=== PATIENT | female | born 2000 | race Caucasian/White ===

== ENCOUNTER 2023-08-06 05:06 | Emergency (ER) | payer OTHER ==
[2023-08-06 05:28] VITALS: TEMP 97.8
[2023-08-06 05:39] LABS: Appearance Clear (Clear); Bacteria None Seen /HPF (None Seen); Bilirubin Negative (Negative); Blood Negative (Negative); Epithelial Cells Rare /HPF (None Seen); Glucose, Urine Negative (Negative); Hyaline Casts NONE SEEN /LPF (0-2); Ketones Negative (Negative); Leukocyte Esterase Negative (Negative); Nitrite Negative (Negative); Protein,Urine Dip Negative (Negative); WBC 0-2 /HPF (0-5)
[2023-08-06 05:41] LABS: ADD URINE CULTURE? NO (NO)
--- NOTE | 2023-08-06 05:49 | ERPHSYRPT ---
- History of Present Illness Historian: patient Exam Limitations: no limitations Patient Subjective Stated Complaint: pt states that on Friday she had mid back pain then Friday night her lower back also started hurting and she isn't able to get comfortable. Triage Nursing Assessment: pt ambulated to room 8 independently with slow steady gait after standing on scale for weight acquisition and to BR to obtain urine specimen. pt is alert and oriented times three, able to move all extremities, able to speak in complete sentences, and with resp even and unlabored. bilat pedal and radial pulses palpable. denies numbness or tingling, loss of bowel or bladder. color and cap refill within normal limits to all extremities. denies injury or accident that might be causing pain. denies n/v, cp, sob, difficulty breathing, difficulty with urination or bowel elimination, change in appetite, fever, cough, chills. Timing/Duration: day(s) (2 days ago) Activities at Onset: none Quality: aching Abdominal Pain Onset Location: flank (Pain is at the right flank right lower back and right mid back) Pain Radiation: no radiation Severity of Pain-Max: moderate Severity of Pain-Current: mild Modifying Factors: Improves With: nothing Associated Symptoms: denies symptoms Previous symptoms: no prior history Hx Tetanus, Diphtheria Vaccination/Date Given: No Hx Influenza Vaccination/Date Given: No Hx Pneumococcal Vaccination/Date Given: No Immunizations Up to Date: No <MIRZA BREWER - Last Filed: 08/06/23 06:52> <ONIEL SOARES - Last Filed: 08/06/23 09:01> - History of Present Illness Time Seen by Provider: 08/06/23 05:30 Physician History: Patient a 23-year-old female presents to emergency department for evaluation of low back pain. Patient states her low back pain started on Friday. Pain was at the midline at that time. On Friday the pain shifted towards her right lower back. No trauma no fever. Patient concerned with her kidneys. Patient denies urinary symptomology. No trauma. Pain is localized. No radiation. Patient states pain is worse if she lays on her back for prolonged period of time. No hematuria no dysuria. No suprapubic pain or tenderness. Patient denies history of the same. Patient states she is otherwise healthy. She voices no other complaints or concerns at this time. Patient declined pain medication Portions of this note were created with voice recognition technology. There may be grammatical, spelling, punctuation or sound alike errors (MIRZA BREWER) Allergies/Adverse Reactions: No Known Drug Allergies Allergy (Verified 08/06/23 05:16) Travel Risk - International Travel Have you traveled outside of the country in past 3 weeks: No - Coronavirus Screening Are you exhibiting any of the following symptoms?: No Close contact with a COVID-19 positive Pt in past 14-21 Days: No - Vaccine Status Have you recieved a Covid-19 vaccination: No <MIRZA BREWER - Last Filed: 08/06/23 06:52> - Review of Systems Constitutional: No Symptoms, No Fever, No Chills Eyes: No Symptoms Ears, Nose, & Throat: No Symptoms Respiratory: No Symptoms, No Cough, No Dyspnea Cardiac: No Symptoms, No Chest Pain, No Edema, No Syncope Abdominal/Gastrointestinal: No Symptoms, No Abdominal Pain, No Nausea, No Vomiting, No Diarrhea Genitourinary Symptoms: No Symptoms, No Dysuria Musculoskeletal: No Symptoms, No Back Pain, No Neck Pain Skin: No Symptoms, No Rash Neurological: No Symptoms, No Dizziness, No Focal Weakness, No Sensory Changes Psychological: No Symptoms Endocrine: No Symptoms Hematologic/Lymphatic: No Symptoms Immunological/Allergic: No Symptoms All Other Systems: Reviewed and Negative <MIRZA BREWER - Last Filed: 08/06/23 06:52> - Past Medical History Pertinent Past Medical History: No Neurological History: No Pertinent History ENT History: No Pertinent History Cardiac History: No Pertinent History Respiratory History: No Pertinent History Endocrine Medical History: No Pertinent History Musculoskeletal History: No Pertinent History GI Medical History: No Pertinent History History: No Pertinent History Psycho-Social History: No Pertinent History Female Reproductive Disorders: No Pertinent History - Past Surgical History Past Surgical History: Yes Neuro Surgical History: No Pertinent History Cardiac: No Pertinent History Respiratory: No Pertinent History Gastrointestinal: No Pertinent History Genitourinary: No Pertinent History Musculoskeletal: No Pertinent History Female Surgical History: No Pertinent History Other Surgical History: wisdom teeth extraction - Social History Smoking Status: Never smoker Exposure to second hand smoke: No Drug Use: none Patient Lives Alone: No - Female History Hx Last Menstrual Period: 07/27/23 Hx Now: No <MIRZA BREWER [facility] Filed: 08/06/23 06:52> - Physical Exam General Appearance: no apparent distress, alert Eye Exam: PERRL/EOMI, eyes nml inspection Ears, Nose, Throat Exam: normal ENT inspection, pharynx normal, moist mucous membranes Neck Exam: normal inspection, non-tender, supple, full range of motion Respiratory Exam: normal breath sounds, lungs clear, airway intact, No respiratory distress Cardiovascular Exam: regular rate/rhythm, normal heart sounds Gastrointestinal/Abdomen Exam: soft, other (Tenderness to palpation at right flank right mid back right lower back), No tenderness, No mass Back Exam: normal inspection, normal range of motion, No CVA tenderness, No vertebral tenderness Extremity Exam: normal inspection, normal range of motion, pelvis stable Neurologic Exam: alert, oriented x 3, cooperative, normal mood/affect, nml cerebellar function, sensation nml, No motor deficits Skin Exam: normal color, warm, dry Lymphatic Exam: No adenopathy SpO2 Interpretation: normal SpO2: 100 O2 Delivery: Room Air <MIRZA BREWER Filed: 08/06/23 06:52> - Nursing Vital Signs Nursing Vital Signs: Initial Vital Signs Temperature 97.8 F 08/06/23 05:17 Pulse Rate 95 H 08/06/23 05:17 Respiratory Rate 18 08/06/23 05:17 Blood Pressure 138/87 08/06/23 05:17 O2 Sat by Pulse Oximetry 100 08/06/23 05:17 Pain Scale Pain Intensity 6 - Course Nursing assessment & vital signs reviewed: Yes <MIRZA BREWER Filed: 08/06/23 06:52> Ordered Tests: Active Orders 24 hr Category Date Time Status IV Insertion STAT Care 08/06/23 05:34 Active Pulse Oximetry (ED) STAT Care 08/06/23 05:34 Active ABDOMEN AND PELVIS W/0 CONTRAS [CT] Stat Exams 08/06/23 05:36 Completed CBC W DIFF Stat Lab 08/06/23 06:14 Completed CMP Stat Lab 08/06/23 06:14 Completed HCG QUALITATIVE, URINE Stat Lab 08/06/23 06:30 Completed LIPASE Stat Lab 08/06/23 07:28 Completed UA W/RFX UR CULTURE Stat Lab 08/06/23 05:25 Completed Lab/Rad Data: Laboratory Result Diagrams 08/06/23 06:14 08/06/23 06:14 Laboratory Results 08/06/23 08/06/23 08/06/23 Range/Units 07:28 06:30 06:14 WBC (4.0-10.5) x10^3/uL RBC (4.1-5.4) x10^6/uL Hgb (12.0-16.0) g/dL Hct (35-47) % MCV (78-100) fL MCH (26-32) pg MCHC (32-36) g/dL RDW (11.5-14.0) % Plt Count (150-450) x10^3/uL MPV (7.5-11.0) fL Gran % (36.0-66.0) % Immature Gran % (Auto) (0.00-0.4) % Nucleat RBC Rel Count (0.00-0.1) % Eos # (Auto) (0-0.5) x10^3/uL Immature Gran # (Auto) (0.00-0.03) x10^3u/L Absolute Lymphs (auto) (1.0-4.6) x10^3/uL Absolute Monos (auto) (0.0-1.3) x10^3/uL Absolute Nucleated RBC (0.00-0.01) x10^3u/L Lymphocytes % (24.0-44.0) % Monocytes % (0.0-12.0) % Eosinophils % (0.00-5.0) % Basophils % (0.0-0.4) % Absolute Granulocytes (1.4-6.9) x10^3/uL Basophils # (0-0.4) x10^3/uL Sodium 139 (137-145) mmol/L Potassium 3.7 (3.5-5.1) mmol/L Chloride 102 (98-107) mmol/L Carbon Dioxide 24 (22-30) mmol/L Anion Gap 16.2 H (5-15) MEQ/L BUN 12 (7-17) mg/dL Creatinine 0.52 (0.52-1.04) mg/dL Estimated GFR 134.6 ML/MIN Glucose 95 (74-106) mg/dL Calcium 9.2 (8.4-10.2) mg/dL Total Bilirubin 1.80 H (0.2-1.3) mg/dL AST 1362 H (14-36) U/L ALT 1067 H (0-35) U/L Alkaline Phosphatase 105 (38-126) U/L Serum Total Protein 7.3 (6.3-8.2) g/dL Albumin 4.4 (3.5-5.0) g/dL Lipase 98 (23-300) U/L Urine Color (Yellow) Urine Appearance (Clear) Urine pH (4.6-8.0) Ur Specific Dexter (1.005-1.030) Urine Protein (Negative) Urine Glucose (UA) (Negative) mg/dL Urine Ketones (Negative) Urine Blood (Negative) Urine Nitrite (Negative) Urine Bilirubin (Negative) Urine Urobilinogen (0.2) mg/dL Ur Leukocyte Esterase (Negative) U Hyaline Cast (Auto) (0-2) /LPF Urine Microscopic RBC (0-5) /HPF Urine Microscopic WBC (0-5) /HPF Ur Epithelial Cells (None Seen) /HPF Urine Bacteria (None Seen) /HPF Urine Culture Reflexed (NO) Urine HCG, Qual NEGATIVE (NEGATIVE) Slides for Path Review 08/06/23 08/06/23 Range/Units 06:14 05:25 WBC 4.3 (4.0-10.5) x10^3/uL RBC 4.09 L (4.1-5.4) x10^6/uL Hgb 11.2 L (12.0-16.0) g/dL Hct 35.6 (35-47) % MCV 87.0 (78-100) fL MCH 27.4 (26-32) pg MCHC 31.5 L (32-36) g/dL RDW 13.1 (11.5-14.0) % Plt Count 231 (150-450) x10^3/uL MPV 10.9 (7.5-11.0) fL Gran % 74.8 H (36.0-66.0) % Immature Gran % (Auto) 0.2 (0.00-0.4) % Nucleat RBC Rel Count 0.0 (0.00-0.1) % Eos # (Auto) 0.02 (0-0.5) x10^3/uL Immature Gran # (Auto) 0.01 (0.00-0.03) x10^3u/L Absolute Lymphs (auto) 0.45 L (1.0-4.6) x10^3/uL Absolute Monos (auto) 0.58 (0.0-1.3) x10^3/uL Absolute Nucleated RBC 0.00 (0.00-0.01) x10^3u/L Lymphocytes % 10.5 L (24.0-44.0) % Monocytes % 13.5 H (0.0-12.0) % Eosinophils % 0.5 (0.00-5.0) % Basophils % 0.5 (0.0-0.4) % Absolute Granulocytes 3.22 (1.4-6.9) x10^3/uL Basophils # 0.02 (0-0.4) x10^3/uL Sodium (137-145) mmol/L Potassium (3.5-5.1) mmol/L Chloride (98-107) mmol/L Carbon Dioxide (22-30) mmol/L Anion Gap (5-15) MEQ/L BUN (7-17) mg/dL Creatinine (0.52-1.04) mg/dL Estimated GFR ML/MIN Glucose (74-106) mg/dL Calcium (8.4-10.2) mg/dL Total Bilirubin (0.2-1.3) mg/dL AST (14-36) U/L ALT (0-35) U/L Alkaline Phosphatase (38-126) U/L Serum Total Protein (6.3-8.2) g/dL Albumin (3.5-5.0) g/dL Lipase (23-300) U/L Urine Color Yellow (Yellow) Urine Appearance Clear (Clear) Urine pH 6.0 (4.6-8.0) Ur Specific Dexter 1.020 (1.005-1.030) Urine Protein Negative (Negative) Urine Glucose (UA) Negative (Negative) mg/dL Urine Ketones Negative (Negative) Urine Blood Negative (Negative) Urine Nitrite Negative (Negative) Urine Bilirubin Negative (Negative) Urine Urobilinogen 1.0 A (0.2) mg/dL Ur Leukocyte Esterase Negative (Negative) U Hyaline Cast (Auto) NONE SEEN (0-2) /LPF Urine Microscopic RBC 3-5 (0-5) /HPF Urine Microscopic WBC 0-2 (0-5) /HPF Ur Epithelial Cells Rare (None Seen) /HPF Urine Bacteria None Seen (None Seen) /HPF Urine Culture Reflexed NO (NO) Urine HCG, Qual (NEGATIVE) Slides for Path Review YES - Progress Progress: improved Counseled pt/family regarding: lab results, diagnosis, rad results <MIRZA BREWER - Last Filed: 08/06/23 06:52> <ONIEL SOARES - Last Filed: 08/06/23 09:01> - Progress Progress Note: 23-year-old female presents with right mid right lower and right flank pain. Physical exam shows tenderness to these locations. Overlying soft tissue intact. No signs of trauma. Laboratory work-up pending. Urinalysis pending. CT abdomen pelvis pending. Patient reassessed. Patient resting comfortably. Patient still declines pain medication at this time. It is currently the change of shift. Patient endorsed to Dr. Soares who will review pending work-up and make final disposition. Portions of this note were created with voice recognition technology. There may be grammatical, spelling, punctuation or sound alike errors Complexity of problems addressed is moderate acute complicated Complexity of data reviewed and analyzed is moderate. Test ordered test reviewed. Initial results analyzed. Clinical correlation made between the findings and history and physical examination. Risk of complication and or risk of morbidity/mortality of patient management is moderate. A prescription for Toradol forwarded to patient's pharmacy. Patient will be discharged home. Vitals to be stable. Plan of care established for shared decision making. No social determinants of health present simply follow-up. Portions of this note were created with voice recognition technology. There may be grammatical, spelling, punctuation or sound alike errors 08/06/23 06:41 (MIRZA BREWER) 08/06/23 08:38 CT scan of the abdomen pelvis without contrast shows tiny gallbladder sludge/gravel and tiny cul-de-sac fluid. The appendix is visualized and it is normal. There is no comparison films. This CT scan of the abdomen pelvis was interpreted by the radiologist and I reviewed the impression. (ONIEL SOARES) Medical Desision Making - Independent Historian Additional History obtained from: Father - Diagnostic Testing Diagnostic test were ordered, analyzed, and reviewed by me: Yes Radiological Interpretation: Reviewed by me, Teleradiologist Report - Risk of complications Minimal Risk: Minimal risk of morbidity <ONIEL SOARES - Last Filed: 08/06/23 09:01> - Departure Departure Disposition: Home Critical Care Time: No <MIRZA BREWER - Last Filed: 08/06/23 06:52> <ONIEL SOARES - Last Filed: 08/06/23 09:01> - Departure Clinical Impression: Back pain, Flank pain, Elevated liver enzymes Condition: Stable Referrals: NITESH GONZALES NP [Primary Care Provider] - Follow up/PCP as directed Additional Instructions: Please follow-up with your primary care doctor within 48 hours for evaluation. Discharge/Care Plan [place] SELBY was seen on 08/06/23 in the Emergency Room. The patient was counseled regarding Diagnosis,Lab results, Imaging studies, need for follow up and when to return to the Emergency Room. Prescriptions given: Discharge Note I have spoken with the patient and/or caregivers. I have explained the patient's condition, diagnosis and treatment plan based on the information available to me at this time. I have answered the patient's and/or caregiver's questions and addressed any concerns. The patient and/or caregivers have as good understanding of the patient's diagnosis, condition and treatment plan as can be expected at this point. The vital signs have been stable. The patient's condition is stable and appropriate for discharge from the emergency department. The patient will pursue further outpatient evaluation with the primary care physician or other designated or consulting physician as outlined in the discharge instructions. The patient and/or caregivers are agreeable to this plan of care and follow-up instructions have been explained in detail. The patient and/or caregivers have received these instruction. The patient/and or caregivers are aware that any significant change in condition or worsening of symptoms should prompt an immediate return to this or the closest emergency department or call 911. Prescriptions: Ketorolac Trometh 10 mg Tab [TORAdol 10 MG TABLET] 10 mg PO TID 5 Days #15 tablet
[2023-08-06 06:23] LABS: Absolute Neutrophil Ct (ANC) 3.22 x10^3/uL (1.4-6.9); BASOPHIL % 0.5 % (0.0-0.4); Basophil (Absolute #) 0.02 x10^3/uL (0-0.4); Eosinophil % 0.5 % (0.00-5.0); Eosinophil (Absolute #) 0.02 x10^3/uL (0-0.5); Hematocrit 35.6 % (35-47); Hemoglobin 11.2 g/dL (12.0-16.0); IMMATURE GRAN # 0.01 x10^3u/L (0.00-0.03); IMMATURE GRAN % 0.2 % (0.00-0.4); Lymphocyte (Absolute #) 0.45 x10^3/uL (1.0-4.6); Lymphocytes % 10.5 % (24.0-44.0); Mean Corpuscular Hemoglobin 27.4 pg (26-32); Mean Corpuscular Hgb Concent. 31.5 g/dL (32-36); Mean Platelet Volume 10.9 fL (7.5-11.0); Monocyte (Absolute #) 0.58 x10^3/uL (0.0-1.3); Monocytes % 13.5 % (0.0-12.0); Neutrophil % 74.8 % (36.0-66.0); Platelet Count 231 x10^3/uL (150-450); Red Blood Count 4.09 x10^6/uL (4.1-5.4); Red Cell Distribution Width 13.1 % (11.5-14.0); White Blood Count 4.3 x10^3/uL (4.0-10.5)
[2023-08-06 06:38] LABS: ALBUMIN 4.4 g/dL (3.5-5.0); ANION GAP 16.2 MEQ/L (5-15); BILIRUBIN,TOTAL 1.8 mg/dL (0.2-1.3); Calcium 9.2 mg/dL (8.4-10.2); Creatinine 1 0.52 mg/dL (0.52-1.04); EST GLOMERULAR FILTRATION RATE 134.6 ML/MIN; Potassium 3.7 mmol/L (3.5-5.1); Total Protein 7.3 g/dL (6.3-8.2)
[2023-08-06 06:58] LABS: HCG URINE TEST NEGATIVE (NEGATIVE)
[2023-08-06 07:13] VITALS: PULSE 74; RESP 18
[2023-08-06 07:49] LABS: Slide Review 1 YES
[2023-08-06 08:32] VITALS: BP 118/79; O2SAT 100
--- NOTE | 2023-08-06 08:45 | XRAY ---
Indication: Right flank pain. Multiple contiguous axial images obtained through the abdomen and pelvis without contrast. Comparison: None Lung bases clear. Heart not enlarged. Noncontrasted stomach and bowel loops appear nonobstructed with normal appendix. Tiny cul-de-sac fluid presumed physiologic from rupture/leaking cyst. Gallbladder demonstrates tiny gall bladder sludge/gravel in the dependent portion. Descending duodenum demonstrates 3-4 mm hyperdensity either ingested medication/pill or food. Given gallbladder sludge/gravel, a distal common bile duct stone not completely excluded. No abnormal biliary distention. Remaining liver, gallbladder, pancreas, spleen, adrenal glands, kidneys, ureters, bladder, uterus, and aorta are unremarkable for noncontrast exam. Osseous structures intact. Impression: 1. 3-4 mm hyperdensity descending duodenum either ingested medication/pill or food. Given gallbladder sludge/gravel, distal common bile duct stone not completely excluded. 2. Tiny physiologic cul-de-sac fluid.
[2023-08-07 06:11] LABS: HBsAg Screen Negative (Negative); HCV Ab Non Reactive (Non Reactive); Hep A Ab, IgM Negative (Negative); Hep B Core Ab, IgM Negative (Negative)
== END 2023-08-06 09:24 | disposition home or self-care (01) ==
LOC: ED 05:06
DX: M54.50 Low back pain, unspecified (principal); R10.9 Unspecified abdominal pain; R94.5 Abnormal results of liver function studies; Z28.310 Unvaccinated for COVID-19
CPT/HCPCS: 36415; 74176; 80053; 80074; 81001; 81025; 83690; 85025; 94760; 99283

== ENCOUNTER 2023-09-15 10:55 | Day surgery (SDC) | payer OTHER ==
--- NOTE | 2023-09-15 08:25 | HP ---
DATE OF SURGERY: 09/15/2023 HISTORY OF PRESENT ILLNESS: The patient is a 23-year-old had some epigastric pain radiating to back, some nausea and vomiting. She went to the emergency room and CT scan showed some stones and sludge, had decreased liver function test. I feel she is a candidate for cholecystectomy. PAST MEDICAL HISTORY: She wears corrective lens. Gallbladder disease. PAST SURGICAL HISTORY: [place] teeth. MEDICATIONS: None on a regular basis. ALLERGIES: NKDA. FAMILY HISTORY: Negative in regards to this problem. SOCIAL HISTORY: No smoking or alcohol abuse. REVIEW OF SYSTEMS: Twelve systems reviewed per admission assessment. No chest pain or palpitations. Other systems negative or noncontributory as above and per preadmission questionnaire. PHYSICAL EXAMINATION: Height 5'3". BMI 26.7. GENERAL: No acute distress. HEENT: Sclerae nonicteric. EOMI. Oral mucous membranes moist. NECK: No JVD. CHEST: Equal excursion, nonlabored breathing. CVS: Regular rate and rhythm. ABDOMEN: Soft, nontender. EXTREMITIES: No significant edema. NEURO: Alert, oriented, moving extremities symmetrically. PSYCH: Appropriate mood and affect. SKIN: Dry. IMPRESSION: Acute exacerbation chronic cholecystitis, cholelithiasis with sludge. I feel the patient would benefit from cholecystectomy. Liver function test has improved. Risks including but not limited to bleeding or infection, risk of trocar injury or hernia, risk of bile leak, bile duct injury, retained stone or sludge possibly requiring ERCP or open procedure, general risk of anesthesia, deep venous thrombosis, pulmonary embolism, pneumonia, perioperative risk of aches, pains, bloating, constipation and/or loose stools possibly even chronic in nature and possibly no improvement in preoperative symptoms possibly requiring further work up, studies, endoscopies, other studies or referrals. If she has recurrent increased liver function test may need other studies, workup or referrals or ERCP. Will proceed with laparoscopic cholecystectomy possible open as an outpatient.
[~2023-09-15 10:55] MED LIST: Sensorcaine 0.25% 10 ML ONE
[2023-09-15] MEDS ORDERED: Transderm Scop 1.5MG Patch TOP PRN (11:20)
[2023-09-15] MEDS ORDERED: Versed 2 MG/2 ML Injection IV PRN (11:20)
[2023-09-15] MEDS ORDERED: Transderm Scop 1.5MG Patch ONE (11:24)
[2023-09-15] MEDS ORDERED: Lactated Ringers 1,000 ML IV ONE ×2 (11:24→14:07)
[2023-09-15 11:29] LABS: HCG URINE TEST NEGATIVE (NEGATIVE)
[2023-09-15] MEDS ORDERED: Lactated Ringers 1,000 ML IV SCH (11:30)
[2023-09-15 11:46] VITALS: RESP 16
[2023-09-15] MEDS ORDERED: MEFOXIN 2 GM PREMIX** 2 GM/50 ML ML IV ONE (12:37)
[2023-09-15] MEDS ORDERED: MEFOXIN 2 GM PREMIX** 2 GM/50 ML ML IV SCH (13:00)
[2023-09-15] MEDS ORDERED: Zemuron 100 MG/10 ML ONE ×2 (13:23→14:08)
[2023-09-15] MEDS ORDERED: DIPRIVAN 200 MG/20 ML IV ONE (13:23)
[2023-09-15] MEDS ORDERED: SUBLIMAZE 100 MCG/2 ML ONE ×3 (13:23→14:56)
[2023-09-15] MEDS ORDERED: Versed 2 MG/2 ML Injection ONE (13:23)
[2023-09-15] MEDS ORDERED: TORAdol 30 mg Injection ONE (14:18)
[2023-09-15] MEDS ORDERED: BRIDION 200MG/2ML IV ONE (14:18)
[2023-09-15 15:43] VITALS: O2SAT 100
[2023-09-15 16:15] VITALS: BP 130/84; PULSE 74; TEMP 98.2
--- NOTE | 2023-09-16 11:57 | OP ---
SURGERY DATE/TIME: 09/15/2023 1341 PREOPERATIVE DIAGNOSIS: Acute exacerbation of chronic cholecystitis, symptomatic cholelithiasis. POSTOPERATIVE DIAGNOSIS: Acute exacerbation of chronic cholecystitis, symptomatic cholelithiasis. PROCEDURE: Laparoscopic cholecystectomy. SURGEON: Dr. Luis Angel Menezes. ANESTHESIA: General. ESTIMATED BLOOD LOSS: Minimal. INDICATIONS: As noted above. Risks and benefits explained in detail but not limited to and consent obtained. DESCRIPTION OF PROCEDURE AND FINDINGS: The patient was taken to the operating room. General anesthesia induced. Abdomen prepped and draped in usual sterile fashion. After official time out and no disagreement with planned procedure, a transverse incision made in the supraumbilical area. Fascia grasped, pulled upward. Veress needle inserted and tested with saline. Pneumoperitoneum accomplished insufflating opening pressure of 0-15. An 11 mm bladeless port and camera were inserted without difficulty followed by two - 5 mm right upper quadrant ports and 5 mm epigastric port. The gallbladder is grasped and retracted over the edge of the liver and laterally away from Calot's triangle. Dissected posterior, lateral to anterior fashion. Slowly and carefully the cystic duct and infundibular junction carefully well skeletonized until the critical view was obtained both anteriorly and posteriorly. Once this is accomplished, the cystic duct and cystic artery were clipped x3 and divided in the usual fashion. The gallbladder slowly and carefully dissected free from its dense attachments to the liver bed staying directly on the gallbladder wall clipping additional side branch off the cystic artery and cystic vein as necessary on the gallbladder wall. Just prior to releasing from final attachments to the anterior edge of the liver, the liver bed re-inspected. Clips noted in place in the cystic duct and cystic artery stumps. No signs of any active bleeding or bile leakage. It was felt there is no benefit of drain placement. The gallbladder was released from final attachments and placed in the provided sac pulled up and out the 07/09 supraumbilical port site and passed off. The fascial defect was then closed with puncture closure device under direct vision of the camera with #1 Vicryl. Copious amount of irrigation accomplished lateral to the liver and subhepatic space irrigating clear. Clips noted to be in place cystic duct and cystic artery stumps. No signs of any active bleeding or bile leakage. It was felt there was no benefit in drain placement. Pneumoperitoneum decompressed. The wound irrigated out. Skin incision closed with 4-0 Vicryl. 0.25% Marcaine local injected along the skin incision fascial defect. The patient tolerated the procedure well. There were no immediate complications. Findings discussed with the family out in the waiting area.
== END 2023-09-15 16:30 | disposition home or self-care (01) ==
LOC: SDC 10:55
PROVIDERS: ATTEND Surgery
DX: K80.12 Calculus of gallbladder with acute and chronic cholecystitis without obstruction (principal)
CPT/HCPCS: 81025; J0694; J1885; J2250; J2704; J3010; A9270-GY